=== PATIENT | female | born 1990 | race Caucasian/White ===

== ENCOUNTER 2016-12-25 20:02 | Emergency (ER) | payer SELFPAY ==
[~2016-12-25 20:02] MED LIST: DICL50TA3 PO
[2016-12-25 20:11] VITALS: BP 132/64; PULSE 84; RESP 20; TEMP 98.3
[2016-12-25] MEDS ORDERED: IBUP1TAB5 PO (20:22)
[2016-12-25] MEDS ORDERED: AZIT250T3 PO (20:34)
--- NOTE | 2016-12-25 20:34 | PD ---
HPI Chief Complaint: ENT Complaint Time Seen by Provider: 20:18 Travel History International Travel<30 days: No Contact w/Intl Traveler<30days: No Traveled to known affect area: No History of Present Illness HPI 26-year-old female here with productive cough body aches times 5 days. She is also reporting sore throat and hoarse voice. Reporting subjective fevers and chills. Symptoms severity is moderate. No alleviating factors. PFSH Past Medical History Arthritis: Yes (JRA) Diminished Hearing: No Tetanus Vaccination: Unknown Influenza Vaccination: Yes ?: Not LMP: 12 11 16 Past Surgical History Tonsillectomy: Yes Social History Alcohol Use: Yes (occassional) Tobacco Use: No Substance Use: No Allergies-Medications (Allergen,Severity, Reaction): Coded Allergies: Penicillins (Verified Allergy, Severe, 12/25/16) Reported Meds & Prescriptions Reported Meds & Active Scripts Active Reported Ibuprofen 400 Mg Tab 400 Mg PO ONCE PRN Review of Systems Except as stated in HPI: all other systems reviewed are Neg General / Constitutional: Positive: Fever, Chills Respiratory: Positive: Cough Physical Exam Narrative GENERAL: Alert well-appearing female in no acute distress SKIN: Warm and dry. HEAD: Normocephalic. EYES: No scleral icterus. No injection or drainage. Throat: Posterior pharyngeal erythema without tonsillar hypertrophy or exudate NECK: Supple, trachea midline. No JVD or lymphadenopathy. CARDIOVASCULAR: Regular rate and rhythm without murmurs, gallops, or rubs. RESPIRATORY: Breath sounds equal bilaterally. No accessory muscle use. Questionable rhonchi GASTROINTESTINAL: Abdomen soft, non-tender, nondistended. Data Data Last Documented VS Vital Signs Date Time Temp Pulse Resp B/P (MAP) Pulse Ox O2 Delivery O2 Flow Rate FiO2 12/25/16 20:11 98.3 84 20 132/64 (86) [facility] Medical Decision Making Medical Screen Exam Complete: Yes Emergency Medical Condition: Yes Differential Diagnosis Influenza, bronchitis, pneumonia, URI Narrative Course 26-year-old female here with productive cough and subjective fevers as high days. Patient on exam has questionable rhonchi. She has posterior pharyngeal erythema without exudate. Patient will be treated with Z-Yvon. Instructed to follow-up with her PCP. Diagnosis Primary Impression: Bronchitis Referrals: [facility] Additional Instructions: Take the medication as prescribed. Take [id number] Motrin 600 800 mg every 6-8 hours as needed for pain. Rest stable hydrated. Scripts Azithromycin (Azithromycin) 250 Mg Tab 250 MG PO DIRECTED for Infection, #6 TAB 0 Refills Take 2 tabs (500 mg) on day 1 then 1 tab daily x 4 days. Prov: Jaida Rodriguez 12/25/16 Disposition: 01 DISCHARGE HOME Condition: Stable Jaida Rodriguez Dec 25, 2016 20:34
== END 2016-12-25 20:41 | disposition home or self-care (01) ==
LOC: PHEFT 20:02 → MERGE 20:02 → PHEFT 20:41
DX: J40 Bronchitis, not specified as acute or chronic (principal); M79.1 Myalgia; R07.0 Pain in throat; R49.0 Dysphonia; Z87.39 Personal history of other diseases of the musculoskeletal system and connective tissue
CPT/HCPCS: 99283